=== PATIENT | female | born 1980 ===

== ENCOUNTER 2020-11-07 07:32 | Day surgery (SDC) | payer OTHER ==
[2020-11-07] MEDS ORDERED: TYLENOL ARTHRI650 MG PO (09:49)
[2020-11-07] MEDS ORDERED: ULTRAM50 MG PO (09:49)
[2020-11-07] MEDS ORDERED: MIRALAX17 GM PO (09:49)
[2020-11-07] MEDS ORDERED: CEPHALEXIN500 MG PO (10:50)
== END 2020-11-07 15:30 | disposition home or self-care (01) ==
LOC: CIR.AMB 07:32
PROVIDERS: ATTEND Surgery
DX: D17.1 Benign lipomatous neoplasm of skin and subcutaneous tissue of trunk (principal); Z20.822 Contact with and (suspected) exposure to COVID-19